=== PATIENT | female | born 1985 | race Caucasian/White ===

== ENCOUNTER 2021-03-29 14:57 | Outpatient (CLI) | payer OTHER, SELFPAY ==
[2021-03-29 16:25] LABS: SARS-CoV-2 Ag Negative (Negative)
[2021-03-30 19:53] LABS: SARS-CoV-2 RNA PCR Negative
== END 2021-03-29 14:58 | disposition home or self-care (01) ==
LOC: CHSLAB 15:05
PROVIDERS: PCP Internal Medicine; Visit Provider Internal Medicine
DX: Z20.822 Contact with and (suspected) exposure to COVID-19 (principal)
CPT/HCPCS: 87426; C9803; U0003; U0005